=== PATIENT | female | born 1985 ===

== ENCOUNTER → 2018-10-17 | Outpatient (CLI) | payer OTHER | LOC: FIMAGING 07:09 → MERGE 07:30 | PROVIDERS: ATTEND Obstetrics & Gynecology | DX: O09.522 Supervision of elderly multigravida, second trimester (principal); Z3A.20 20 weeks gestation of pregnancy ==

== ENCOUNTER → 2019-02-27 | Outpatient (CLI) | payer OTHER | LOC: FLACT 09:32 ==

== ENCOUNTER 2019-03-01 10:42 | Observation (INO) | payer OTHER | END 2019-03-02 13:00 | disposition home or self-care (01) | LOC: FLD 13:30 ==